=== PATIENT | male | born 1935 | race Caucasian/White ===

== ENCOUNTER → 2019-11-14 | Outpatient (CLI) | payer MEDICARE, BC ==
--- NOTE | 2019-11-14 13:42 | RAD ---
EXAM: CT left hip without IV contrast INDICATION: Osteoarthritis pain TECHNIQUE: Helical CT imaging of the left hip at 5 mm slice thickness was performed without IV contrast and reviewed in bone and soft tissue reconstructions in coronal and sagittal planes. All CT scans performed at this facility utilize dose optimization techniques as appropriate to the exam, including the following: Automated exposure control and adjustment of the mA and/or KV according to patient size (this includes techniques or standardized protocols for targeted exams where dose is indication/reason for exam). IV CONTRAST: Administered COMPARISON: None FINDINGS: Osseous alignment and mineralization are normal. No fracture or aggressive appearing osseous lesions are seen. A benign-appearing bone island in the left femoral head and in the posterior acetabulum is noted. The joint space is symmetric and preserved with no subchondral sclerosis or subchondral cystic change. The sacroiliac joints are normal. The soft tissues show surgical changes from previous left pelvic lymph node and groin dissection. The prostate gland is enlarged, measuring 6 cm in transverse diameter. Urinary bladder is moderately distended. It measures 13 cm in craniocaudal extent. IMPRESSION: 1. No significant CT evidence of left hip degenerative changes. 2. Patient has an enlarged prostate in a distended urinary bladder along with surgical changes from previous left pelvic surgery. EXAM: CT Lumbar Spine without IV contrast INDICATION: Low back pain TECHNIQUE: Multi-detector row CT images were obtained through the lumbar spine without the use of IV contrast. Post-processing sagittal and coronal reconstructed images were obtained for interpretation. All CT scans performed at this facility utilize dose optimization techniques as appropriate to the exam, including the following: Automated exposure control and adjustment of the mA and/or KV according to patient size (this includes techniques or standardized protocols for targeted exams where dose is indication/reason for exam). COMPARISON: Abdomen and pelvis CT of 06/13/2005. FINDINGS: The lowest fully formed disc is referred to as the L5-S1 level. ALIGNMENT: The lumbar spine is straightened. No listhesis is evident. OSSEOUS: Bones are mildly demineralized but no fracture or aggressive appearing osseous lesions are seen. In the right L2 and the right L3 vertebral bodies, as well as in the superior endplate of L5, small sclerotic foci measuring 2 to 3 mm are present that could represent benign bone islands but are nonspecific.. DISC SPACES: There is focal disc space narrowing at L4-L5 with endplate osteophytic spurring and early subchondral cystic change. Minimal diffuse bulge at L5-S1 with loss of height is present. FACET JOINTS: Unremarkable. SPINAL CANAL: Mild flattening the ventral thecal sac at L4-L5 due to disc osteophyte complex. NEUROFORAMINA: Mild to moderate bilateral foraminal narrowing at L4-L5 is present. Mild bilateral foraminal narrowing at L5-S1. SOFT TISSUES: Unremarkable. 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 Electronically signed by: Lj Springer MD (11/14/2019 1:39 PM) [id number]
== END | disposition home or self-care (01) ==
LOC: CT 12:06
PROVIDERS: ATTEND Family Medicine
DX: M16.12 Unilateral primary osteoarthritis, left hip (principal); M51.26 Other intervertebral disc displacement, lumbar region; M25.852 Other specified joint disorders, left hip; N40.0 Benign prostatic hyperplasia without lower urinary tract symptoms
CPT/HCPCS: 72131; 73700